=== PATIENT | female | born 1970 | race African-American/Black ===

== ENCOUNTER 2018-07-30 07:19 | Emergency (ER) | payer BC, MEDICAID ==
[~2018-07-30] VITALS: Ht 175.3 cm; Wt 96.0 kg
[~2018-07-30 07:19] MED LIST: ASPI-1265 PO; LISI-643 PO; NEBI2.5T3 PO; NOR5T PO
[2018-07-30 07:26] VITALS: BP 166/109
[2018-07-30] MEDS ORDERED: PENI500T2 PO (08:22)
== END 2018-07-30 08:32 | disposition home or self-care (01) ==
LOC: ER 07:19
DX: K04.7 Periapical abscess without sinus (principal); I10 Essential (primary) hypertension; F17.200 Nicotine dependence, unspecified, uncomplicated; Z56.0 Unemployment, unspecified; Z79.82 Long term (current) use of aspirin; Z79.899 Other long term (current) drug therapy
CPT/HCPCS: 99283

== ENCOUNTER 2025-04-28 08:29 | Inpatient (IN) | payer MEDICAID ==
[~2025-04-28] VITALS: Ht 177.8 cm; Wt 93.8 kg
[~2025-04-28 08:29] MED LIST changes: +NEBI2.5T2 PO; -NEBI2.5T3 PO
[2025-04-28 09:16] LABS: MEAN PLATELET VOLUME 7.9 FL (7.4-10.4); RED CELL DISTRIBUTION WIDTH 14.1 % (11.5-14.5)
[2025-04-28 09:34] LABS: CREATININE 0.86 MG/DL (0.40-0.90); TOTAL CARBON DIOXIDE 24.1 MMOL/L (24-32); eCRCL 80 ML/MIN; eGFR 83 ML/MIN
[2025-04-28 09:38] LABS: EOSINOPHILS % (MANUAL) 3.0 % (0-6); LYMPHOCYTES % (MANUAL) 47.0 % (21-51); MONOCYTES % (MANUAL) 8.0 % (2-12); NEUTROPHILS % (MANUAL) 42.0 % (42-75); PLATELET ESTIMATE NORMAL
--- NOTE | 2025-04-28 12:13 | ELECTROCARDIOGRAPH REPORT ---
[facility] Test Date: 2025-04-28 Test Time: 08:58:31 Pat Name: TONY SIGALA Department: EMERGENCY ROOM Room: [place] [address] Gender: F Regional Guide: SID : [id number] Requested By: CATRINA WONG Order Number: [id number] Reading MD: Dr. Hugh Newell Measurements Intervals [place] Rate: 105 P: 77 NV: 147 QRS: 73 QRSD: 92 T: 53 QT: 341 QTc: 451 Interpretive Statements Sinus tachycardia Borderline T abnormalities, anterior leads Electronically Signed On 05-02-2025 20:04:[address] Hugh Newell Please click the below link to view image of tracing.
--- NOTE | 2025-04-28 12:19 | Physician Documentation ---
History of Present Illness ~ Chief Complaint: Bloody Stools Stated Complaint: MULTIPLE MEDICAL COMPLAINTS Time Seen by MD: 11:43 Primary Medical Doctor: [facility] Mode of Arrival: POV HPI 54 yof h/o prior TUD (20pyh quite 5 years ago), anemia presenting with 1 month of weakness. Reports dizziness and weakness with standing. 1 week ago started with bright red blood in toilet bowl and abdominal cramping. No surgical history. No history of GI issues. Does report chronic loose stools. No col onoscopy or endoscopy. No NSAID or ASA use. No AC or alcohol. Medication Reconciliation Allergies: Coded Allergies: Penicillins (Verified Allergy, Unknown, 04/28/25) Scheduled Amlodipine* (Norvasc*), 5 MG PO DAILY, (Reported) Aspirin (Aspirin), 81 MG PO DAILY, (Reported) Lisinopril (Zestril), 10 MG PO DAILY, (Reported) Miscellaneous Medications Nebivolol Hcl (Bystolic), 2.5 MG PO, (Reported) Past Medical History Past Medical History: Hypertension Past Surgical History: no surgical history Alcohol Use: None Lives with: Family Lives In: Home Occupation: unemployed Review of Systems All Other Systems at this time: Reviewed and Negative Constitutional: Denies: fever Respiratory: Reports: SOB with exertion Cardiovascular: Denies: chest pain, syncope Physical Exam Vital Signs: Temperature: 96.4, Source: Temporal, Heart Rate: 112, Respiratory Rate: 16, BP: 102/75, Pulse Oximetry: 100, Weight: 93.800 Physical Exam non toxic no jvd pale conjunctiva cardiac no murmur lungs ctab abdomen mild lower quadrant ttp no guarding or rebound. neuro awake alert oriented Progress Progress Note 4pm d/w hospitalist who accepts for admission. Results/Orders Reviewed/noted all lab results: Yes (hgb 7.8 from 09.13) Results/Orders Orders - CATRINA WONG MD Ct Abdomen Pelvis (04/28/25 12:20) Page Hospitalist (04/28/25 13:48) Fill Out Med Reconciliation (04/28/25 13:48) Culture Blood (04/28/25 14:17) Completed Orders - CATRINA WONG MD Hcg, Ur Ql (04/28/25 08:37) Cbc/Diff (04/28/25 08:37) BMP (04/28/25 08:37) Lipase (04/28/25 08:37) CMP (04/28/25 08:37) Electrocardiogram (04/28/25 08:37) Man Diff (04/28/25 09:00) Type And Screen (04/28/25 12:14) Pt Inr (04/28/25 12:14) PTT (04/28/25 12:14) Ct Abdomen Pelvis (04/28/25 12:20) Iohexol 300mg/Ml 100ml Inj. (Omnipaque-3 (04/28/25 12:32) Ua W/Microscopic, Cult If Ind (04/28/25 12:32) Ceftriaxone 2gm/D5w 50ml Bag (Rocephin 2 (04/28/25 13:50) Metronidazole-Flagyl 500mg/Ns (Flagyl 50 (04/28/25 13:47) Lacticsepsis (04/28/25 14:17) Medications Received in ER Medications (Trade) Dose Ordered Sig/Tori Route PRN Reason Start Time Stop Time Status Last Admin Dose Admin Ceftriaxone Sodium/Dextrose 50 ml @ 100 mls/hr ONCE ONCE IV 04/28/25 13:50 04/28/25 14:19 DC 04/28/25 14:48 100 MLS/HR Metronidazole/ Sodium Chloride 100 ml @ 100 mls/hr ONCE STAT IV 04/28/25 13:47 04/28/25 14:46 DC 04/28/25 14:48 100 MLS/HR (Norvasc tablet) 5 mg ONCE ONCE PO 04/28/25 14:55 04/28/25 15:10 DC 04/28/25 15:30 5 MG (Zestril tablet) 10 mg ONCE ONCE PO 04/28/25 14:55 04/28/25 15:10 DC 04/28/25 15:29 10 MG Vital Signs 04/28/25 04/28/25 04/28/25 08:31 11:53 13:55 Temp 96.4 Pulse 112 80 Resp 16 16 16 B/P (MAP) 102/75 164/96 (118) Pulse Ox 100 97 O2 Flow Rate 0 Laboratory Tests Test 04/28/25 09:00 04/28/25 12:32 04/28/25 14:35 White Blood Count 2.9 L Red Blood Count 2.48 L Hemoglobin 7.8 L Hematocrit 22.7 L Mean Corpuscular Volume 91.5 Mean Corpuscular Hemoglobin 31.4 H Mean Corpuscular Hemoglobin Concent 34.4 Red Cell Distribution Width 14.1 Platelet Count 236 Mean Platelet Volume 7.9 Neutrophils (%) (Auto) 40.6 L Lymphocytes (%) (Auto) 50.2 Monocytes (%) (Auto) 6.0 Eosinophils (%) (Auto) 2.6 Basophils (%) (Auto) 0.6 Neutrophils # (Auto) 1.2 L Lymphocytes # (Auto) 1.4 Monocytes # (Auto) 0.2 Eosinophils # (Auto) 0.1 Basophils # (Auto) 0.0 CBC Comment Differential Total Cells Counted 100 Neutrophils % (Manual) 42.0 Lymphocytes % (Manual) 47.0 Monocytes % (Manual) 8.0 Eosinophils % (Manual) 3.0 Platelet Estimate Normal Red Blood Cell Morphology Normal Basophilic Stippling Prothrombin Time 9.9 INR International Normalized Ratio 1.0 Activated Partial Thromboplast Time 21 L Coagulation Comments Sodium Level 140 Potassium Level 3.5 Chloride Level 107 Carbon Dioxide Level 24.1 Anion Gap 9 Blood Urea Nitrogen 12 Creatinine 0.86 Estimated GFR/1.73 m2 83 BUN/Creatinine Ratio 14.0 Glucose Level 96 Calcium Level 8.4 L Iron Level 90 Total Iron Binding Capacity 208 L Percent Iron Saturation 43 Total Bilirubin 0.4 Aspartate Amino Transf (AST/SGOT) 12 Alanine Aminotransferase (ALT/SGPT) 24 Alkaline Phosphatase 58 Total Protein 6.5 Albumin 3.4 Globulin 3.1 Albumin/Globulin Ratio 1.1 Lipase 92 H Chemistry Comments Urine Specimen Description Cln catch midstream Urine Color Yellow Urine Clarity Clear Urine pH 6.0 Urine Specific [place] >=1.030 Urine Protein Trace Urine Glucose (UA) Negative Urine Ketones Negative Urine Occult Blood Negative Urine Nitrite Negative Urine Bilirubin Negative Urine Urobilinogen 0.2 Urine Leukocyte Esterase Negative Urine RBC 0-2 Urine WBC 0-4 Urine Squamous Epithelial Cells Few Urine Bacteria None seen Urine Mucus Few Urine Culture Indicated Not ind Volume Urine Centrifuged 10 ml Urine HCG, Qualitative Negative Urine Comment Lactic Acid Level 1.0 Microbiology Date/Time Source Procedure Growth Status 04/28/25 14:35 Blood Arm Left Blood Culture - Preliminary NEGATIVE (LESS THAN 24 HOURS) Resulted Departure Disposition: ADMITTED INPATIENT Admitted to Inpatient Unit: to hospitalist Impression: Primary Impression: Diverticulitis Additional Impression: GI bleed Qualified Codes: K92.2 - Gastrointestinal hemorrhage, unspecified Referrals: NO PRIMARY CARE PROVIDER (PCP) Signature Scribe Signature: na Attestation: CATRINA Zimmer MD Apr 28, 2025 12:19
[2025-04-28] MEDS ORDERED: iohexol 300mg/ml 100ml inj. ONE (12:32)
[2025-04-28 12:36] LABS: APTT 21 SECONDS (22-32); INR 1.0 INR
[2025-04-28 12:48] LABS: LEUKOCYTE ESTERASE ,URINE NEGATIVE (Neg); NITRITES, URINE NEGATIVE (Neg); OCCULT BLOOD,URINE NEGATIVE (Neg)
[2025-04-28 12:50] LABS: URINE HCG NEGATIVE (NEG)
[2025-04-28 12:54] LABS: MUCUS STRANDS FEW /LPF (Neg); SQUAMOUS EPITHELIAL CELL,UR FEW /LPF (FEW); UA COLLECTION TYPE CLN CATCH MIDSTREAM
--- NOTE | 2025-04-28 13:17 | RADIOLOGY REPORT ---
CT CT ABDOMEN PELVIS W/ IV CONTRAST INDICATION: abdominal pain EXAM DATE: 04/28/2025 12:37 PM COMPARISON: None RADIATION DOSE: CTDIvol: 29 mGy, DLP: 1537 mGy*cm PROCEDURE: Helical CT images were obtained of the abdomen and pelvis with IV contrast Sagittal and co tawanna reconstructions are provided. ORAL CONTRAST: None. ADDITIONAL IMAGES / REFORMATS: None All CT s cans at this medical facility are performed using dose modulation techniques as appropriate to a perf ormed exam including the following: Automated exposure control was utilized; adjustment of the MA and /or KV according to patient size; and use of iterative reconstruction technique. FINDINGS: LUNG BASE: Bibasilar ground glass opacities. LIVER: Normal. GALLBLADDER AND BILIARY TREE: No calcified gallstones. Normal caliber wall. No intra- or extrahepatic biliary ductal dilation. PANCREAS: Normal. SPLEEN: Normal. BOWEL: There is a small hiatal hernia. There is severe colonic diverticulosis with mild cecal diverti culitis. The appendix appears normal. ADRENALS: Normal. KIDNEYS AND URETER: Normal. BLADDER: Normal. REPRODUCTIVE ORGANS: Small uterine fibroids are seen. LYMPH NODES:No lymphadenopathy. PERITONEUM: No ascites or free air. No other fluid collection. VESSELS: Scattered atherosclerotic calcifications are noted. RETROPERITONEUM: Normal. ABDOMINAL WALL: Normal. BONES: Scattered osseous degenerative changes are noted. IMPRESSION: Severe colonic diverticulosis with mild cecal diverticulitis.
[2025-04-28] MEDS: CefTRIAXone 2gm/D5W 50ml BAG 50 ML IV ONE (14:48)
[2025-04-28] MEDS: metroNIDAZOLE-Flagyl 500mg/NS 100 ML IV STA (14:48)
[2025-04-28] MEDS ORDERED: magnesium sulf-water 2g/50mL 50 ML IV PRN (14:55)
[2025-04-28] MEDS ORDERED: mag hydrox/Alum hydrox/simeth 30ml oral suspension PO PRN (14:55)
[2025-04-28] MEDS ORDERED: potassium Cl 20 mEq SR tablet PO PRN (14:55)
[2025-04-28] MEDS ORDERED: magnesium sulf-water 4G/100mL 100 ML IV PRN (14:55)
[2025-04-28] MEDS ORDERED: potassium Cl 40MEQ/1/2NS 520ml 520 ML IV PRN (14:55)
[2025-04-28] MEDS ORDERED: magnesium hydroxide 30ml (MOM) UD suspension PO PRN (14:55)
--- NOTE | 2025-04-28 15:13 | HISTORY AND PHYSICAL ---
History & Physical Providers to CC ~ History of Present Illness Reason for Admit\Complaint: Acute diverticulitis\ Fatigue and dizziness History of Present Illness This is a 54-year-old female who presents to the ED with a chief complaint of left lower quadrant abdominal tenderness and pain times three days. The patient has been dizzy and fatigued for close to one month she had symptoms while she was at [facility] in her daughter thought that maybe the patient was dehydrated and needed to eat and with the eating food and hydration the patient felt better. The patient noticed three days ago that while experiencing diarrhea that she had bright red blood in her stool she has a another episode where stool was darker colored. The patient also was experiencing cramping while having a bowel movement. The patient did take ibuprofen with the abdominal cramping however rarely takes ibuprofen does not recall if she took ibuprofen with food. The patient has a history of anemia and had a workup with Hematology for which the patient informs me was inconclusive. Hemoglobin currently 7.8 which on previous lab in [address] scan was obtained that demonstrates diverticulitis. Allergies: Coded Allergies: Penicillins (Verified Allergy, Unknown, 04/28/25) Home Medications Home Medications Active Reported Aspirin 81 Mg Tab.chew 81 Mg PO DAILY Bystolic (Nebivolol Hcl) 2.5 Mg Tablet 2.5 Mg PO Zestril (Lisinopril) 10 Mg Tablet 10 Mg PO DAILY Norvasc* (Amlodipine Besylate) 5 Mg Tablet 5 Mg PO DAILY Past Medical History Past Medical History Anemia, hypertension Past Surgical History Surgical History Comment Ankle surgery, bone marrow biopsy for anemia workup Family History Family History: FH: hypertension MOTHER Past Social History Social History Comment Quit smoking cigarettes five years ago, does not drink alcohol or use illicit drugs. Full code status. ROS ROS Except for positives in the HPI the rest of the 14 point review systems is negative Exam Vitals: Vital Signs Date Time Temp Pulse Resp B/P (MAP) Pulse Ox O2 Delivery O2 Flow Rate FiO2 04/28/25 13:55 80 16 164/96 (118) 97 0 04/28/25 08:31 96.4 General: Gen. No acute distress alert and oriented 4 Lungs clear to ascultation bilaterally, no wheezes rales or rhonchi appreciated Heart normal sinus rhythm no murmurs rubs or clicks noted Abdomen soft nontender bowel sounds are normoactive Lower extremities no clubbing cyanosis, nor edema appreciated bilaterally Diagnostic Data Last Recorded Lab Results: 04/28/25 0900 04/28/25 0900 Diagnostic Data: Laboratory Tests Test 04/28/25 09:00 Prothrombin Time 9.9 SECONDS (9.0-12.0) INR International Normalized Ratio 1.0 INR Activated Partial Thromboplast Time 21 SECONDS (22-32) L Coagulation Comments Advance Care Planning Advanced Care plannin - 30 Minutes Problems: (1) Diverticulitis Additional Plan # acute diverticulitis IV Cipro IV Flagyl # hematochezia # melena # anemia Possibly related to diverticulitis Prior hematology evaluation which was inconclusive I will start the patient on Protonix 40 mg IV b.i.d. Iron studies are ordered # hypertension Continue amlodipine Continue lisinopril PRN hydralazine # DVT prophylaxis SCDs I spent a total of 17 minutes on reviewing various resuscitative measures/ ACP with the patient at the time of admission. The patient has decided on full code status Date of Service: Apr 28, 2025 Billing Provider: CAROLYN COSTELLO DO Common Visit Codes: 87569-[id number] INP/OBS CARE (HIGH) Secondary Visit Codes: [id number] CARE PLAN 30 MINUTES CAROLYN COSTELLO DO Apr 28, 2025 15:13
[2025-04-28 15:17] LABS: % IRON SATURATION 43 % (11-46)
[2025-04-28] MEDS ORDERED: hydrALAZINE 20mg/ml inj. IV PRN (15:20)
[2025-04-28 16:31] LABS: MEAN PLATELET VOLUME 8.1 FL (7.4-10.4); RED CELL DISTRIBUTION WIDTH 13.8 % (11.5-14.5)
[2025-04-28 17:00] VITALS: BP 141/81; PULSE 83; RESP 14; TEMP 98.6; O2SAT 97
[2025-04-28 18:00] VITALS: BP 141/81; PULSE 83; RESP 14; TEMP 98.6; O2SAT 97
[2025-04-28] MEDS: K and/or MAG REPLACEMENT MC SCH (19:05)
[2025-04-28 20:00] VITALS: RESP 14; O2SAT 97
[2025-04-28] MEDS: docusate sod 100mg capsule PO SCH (20:37)
[2025-04-28] MEDS: ciprofloxacin lact 400MG/200ML 200 ML IV SCH (20:42)
[2025-04-28] MEDS: ondansetron/PF 4mg/2ml inj IV PRN (20:53)
[2025-04-28 22:00] VITALS: BP 137/82; PULSE 87; RESP 20; TEMP 98.2; O2SAT 100
[2025-04-28] MEDS ORDERED: SEMA1.7P SQ (22:45)
[2025-04-29] VITALS (11 sets, daily range): BP systolic 116–132; BP diastolic 67–84; PULSE 84–110; RESP 14–18; TEMP 97.5–98.6; O2SAT 97–98
[2025-04-29] MEDS: metroNIDAZOLE-Flagyl 500mg/NS 100 ML IV SCH (00:16)
[2025-04-29 05:49] LABS: MEAN PLATELET VOLUME 8.1 FL (7.4-10.4); RED CELL DISTRIBUTION WIDTH 14.0 % (11.5-14.5)
[2025-04-29 06:24] LABS: CREATININE 0.75 MG/DL (0.40-0.90); TOTAL CARBON DIOXIDE 24.3 MMOL/L (24-32); eCRCL 92 ML/MIN; eGFR > 90 ML/MIN
[2025-04-29] MEDS: potassium Cl 20 mEq SR tablet PO PRN (08:16)
--- NOTE | 2025-04-29 19:12 | PROGRESS NOTE ---
Daily Progress Note Providers to CC ~ Antibiotic Timeout Antibiotic Ordered?: No Subjective The patient dropped her hemoglobin to 6.8 today and I discuss the risks and benefits of a transfusion with the patient and consented her for transfusion 1 unit of packed red blood cells. The patient is iron studies demonstrates an normal serum iron level and % saturation our for TIBC is depressed Objective Vital Signs Date Time Temp Pulse Resp B/P (MAP) Pulse Ox O2 Delivery O2 Flow Rate FiO2 04/29/25 16:05 98.6 84 16 132/84 04/29/25 10:00 98 Room Air 04/28/25 13:55 0 Result Diagram: 04/29/25 0516 04/29/25 0516 Gen. No acute distress alert and oriented 4 Lungs clear to ascultation bilaterally, no wheezes rales or rhonchi appreciated Heart normal sinus rhythm no murmurs rubs or clicks noted Abdomen soft nontender bowel sounds are normoactive Lower extremities no clubbing cyanosis, nor edema appreciated bilaterally Coagulation Studies Laboratory Tests Test 04/28/25 09:00 Prothrombin Time 9.9 SECONDS (9.0-12.0) INR International Normalized Ratio 1.0 INR Activated Partial Thromboplast Time 21 SECONDS (22-32) L Coagulation Comments Problem\Assessment\Plan Problems/Diagnosis: (1) Diverticulitis # acute diverticulitis IV Cipro IV Flagyl # hematochezia # melena # anemia Possibly related to diverticulitis Prior hematology evaluation which was inconclusive I will start the patient on Protonix 40 mg IV b.i.d. 04/29 Iron studies demonstrated normal serum iron level and % saturation however TIBC is depressed recommended follow up with Hematology in the outpatient setting Hemoglobin dropped to 6.8 and a unit of packed red blood cells was ordered to transfuse # hypertension Continue amlodipine Continue lisinopril PRN hydralazine # DVT prophylaxis SCDs Date of Service: Apr 29, 2025 Billing Provider: CAROLYN COSTELLO DO Common Visit Codes: [id number] INP/OBS CARE(HIGH) CAROLYN COSTELLO DO Apr 29, 2025 19:12
[2025-04-29 20:04] LABS: MEAN PLATELET VOLUME 7.9 FL (7.4-10.4); RED CELL DISTRIBUTION WIDTH 16.4 % (11.5-14.5)
[2025-04-30 05:48] LABS: MEAN PLATELET VOLUME 8.0 FL (7.4-10.4); RED CELL DISTRIBUTION WIDTH 16.8 % (11.5-14.5)
[2025-04-30 06:10] LABS: CREATININE 0.89 MG/DL (0.40-0.90); TOTAL CARBON DIOXIDE 24.2 MMOL/L (24-32); eCRCL 77 ML/MIN; eGFR 80 ML/MIN
[2025-04-30 06:30] VITALS: BP 145/94; PULSE 82; RESP 18; TEMP 98.2; O2SAT 97
[2025-04-30 09:48] LABS: C DIFF ANTIGEN NEGATIVE (NEGATIVE); C DIFF SPECIMEN=DIARRHEA? ACCEPTABLE; C DIFFICILE TOXINS A&B NEGATIVE (Neg)
[2025-04-30] MEDS ORDERED: CIPR-202 PO (10:59)
[2025-04-30] MEDS ORDERED: PANT40TA54 PO (10:59)
[2025-04-30] MEDS ORDERED: METR-159 PO (10:59)
[2025-04-30 11:00] VITALS: BP 151/94; PULSE 83; RESP 15; TEMP 97.9; O2SAT 97
[2025-04-30 18:00] VITALS: BP 146/89; PULSE 79; RESP 16; TEMP 97.9; O2SAT 99
[2025-04-30 20:00] VITALS: RESP 18
--- NOTE | 2025-04-30 20:00 | PROGRESS NOTE ---
Daily Progress Note Providers to CC ~ Antibiotic Timeout Antibiotic Ordered?: Yes Subjective The patient was concerned about going home and requested to stay an additional evening to monitor hemoglobin which has stabilized and was 7.5 today Objective Vital Signs Date Time Temp Pulse Resp B/P (MAP) Pulse Ox O2 Delivery O2 Flow Rate FiO2 04/30/25 11:00 97.9 83 15 151/94 (113) 97 Room Air 04/30/25 08:00 0.0 Result Diagram: 04/30/2543304/30/25 043 Gen. No acute distress alert and oriented 4 Lungs clear to ascultation bilaterally, no wheezes rales or rhonchi appreciated Heart normal sinus rhythm no murmurs rubs or clicks noted Abdomen soft nontender bowel sounds are normoactive Lower extremities no clubbing cyanosis, nor edema appreciated bilaterally Coagulation Studies Laboratory Tests Test 04/28/25 09:00 Prothrombin Time 9.9 SECONDS (9.0-12.0) INR International Normalized Ratio 1.0 INR Activated Partial Thromboplast Time 21 SECONDS (22-32) L Coagulation Comments Problem\Assessment\Plan Problems/Diagnosis: (1) Diverticulitis # acute diverticulitis IV Cipro IV Flagyl # hematochezia # melena # anemia Possibly related to diverticulitis Prior hematology evaluation which was inconclusive I will start the patient on Protonix 40 mg IV b.i.d. 04/29 Iron studies demonstrated normal serum iron level and % saturation however TIBC is depressed recommended follow up with Hematology in the outpatient setting Hemoglobin dropped to 6.8 and a unit of packed red blood cells was ordered to transfuse 04/30 hemoglobin has stabilized status post transfusion of 1 unit of packed red blood cells and was 7.5. Continue monitor # hypertension Continue amlodipine Continue lisinopril PRN hydralazine # DVT prophylaxis SCDs Anticipate discharge in the a.m. Date of Service: Apr 30, 2025 Billing Provider: CAROLYN COSTELLO DO Common Visit Codes: [id number] INP/OBS CARE(HIGH) CAROLYN COSTELLO DO Apr 30, 2025 20:00
[2025-04-30 22:00] VITALS: BP 134/87; PULSE 80; RESP 14; TEMP 98; O2SAT 99
[2025-05-01 04:55] LABS: MEAN PLATELET VOLUME 7.8 FL (7.4-10.4); RED CELL DISTRIBUTION WIDTH 16.5 % (11.5-14.5)
[2025-05-01 05:15] LABS: CREATININE 0.79 MG/DL (0.40-0.90); TOTAL CARBON DIOXIDE 23.9 MMOL/L (24-32); eCRCL 87 ML/MIN; eGFR > 90 ML/MIN
[2025-05-01 06:00] VITALS: BP 134/84; PULSE 85; RESP 14; TEMP 98; O2SAT 99
[2025-05-01 08:20] VITALS: RESP 16
[2025-05-01 10:00] VITALS: BP 154/89; PULSE 84; RESP 17; TEMP 97.5; O2SAT 99
--- NOTE | 2025-05-01 20:10 | DISCHARGE SUMMARY ---
Discharge Summary Providers to CC ~ Discharge Summary Admission Diagnosis: Acute diverticulitis Hospital Course DATE OF ADMISSION: 04/28/2025 DATE OF DISCHARGE: 05/01/2025 Discharge Diagnosis\Comment: GI bleed, diverticulitis, hypertension Operations\Procedures: None Consultants: None Complications: None Condition on DC: Stable New Medications: Ciprofloxacin HCl (Ciprofloxacin HCl) 500 Mg Tab 1 TAB PO BID, #10 TAB Metronidazole* (Flagyl*) 500 Mg Tablet 1 TAB PO Q8H, #15 TAB Pantoprazole Sodium (Pantoprazole Sodium) 40 Mg Tablet.dr 40 MG PO DAILY, #30 TAB.SR Continued Medications: Amlodipine* (Norvasc*) 5 Mg Tablet 5 MG PO DAILY Lisinopril (Zestril) 10 Mg Tablet 10 MG PO DAILY Semaglutide (Wegovy) 1.7 Mg/0.75 Ml Pen.injctr 0.75 SQ Q7D Discontinued Medications: Aspirin (Aspirin) 81 Mg Tab.chew 81 MG PO DAILY, TAB.CHEW Discharge Summary: I admitted the patient with the following HPI:This is a 54-year-old female who presents to the ED with a chief complaint of left lower quadrant abdominal tenderness and pain times three days. The patient has been dizzy and fatigued for close to one month she had symptoms while she was at [employer] in her daughter thought that maybe the patient was dehydrated and needed to eat and with the eating food and hydration the patient felt better. The patient noticed three days ago that while experiencing diarrhea that she had bright red blood in her stool she has a another episode where stool was darker colored. The patient also was experiencing cramping while having a bowel movement. The patient did take ibuprofen with the abdominal cramping however rarely takes ibuprofen does not recall if she took ibuprofen with food. The patient has a history of anemia and had a workup with Hematology for which the patient informs me was inconclusive. Hemoglobin currently 7.8 which on previous lab in [address] scan was obtained that demonstrates diverticulitis. The patient's hemoglobin dropped to 6.8 on the and the patient was transfused 1 unit packed red blood cells for which her hemoglobin did improve to 7.4 and was stable and on day discharge was 8.1 Iron studies were obtained which demonstrated a serum iron level of 90 TIBC of 208 and % saturation of 43 that is the patient is not have iron-deficiency but anemia of chronic disease. The patient had seen Hematology in the past and was recommended to go follow up with Hematology The CT scan on admission demonstrated severe colonic diverticulosis with mild cecal diverticulitis and the patient was treated with IV ciprofloxacin and IV metronidazole and discharged with an additional five days of both medications and recommended to take a probiotic to avoid C difficile enterocolitis. 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 Gen. No acute distress alert and oriented 4 Lungs clear to ascultation bilaterally, no wheezes rales or rhonchi appreciated Heart normal sinus rhythm no murmurs rubs or clicks noted Abdomen soft nontender bowel sounds are normoactive Lower extremities no clubbing cyanosis, nor edema appreciated bilaterally The patient felt ready to be discharged and was medically cleared to be discharged on 05/01/2025 The patient was seen and evaluated on day of discharge. Time spent on discharge 35 minutes *Problems/Diagnosis: (1) Diverticulitis Total Time Spent on D/C: > 30 Minutes Date of Service: May 01, 2025 Billing Provider: CAROLYN COSTELLO DO Common Visit Codes: 92306-GQF/OBS DISCH DAY >30min CAROLYN COSTELLO DO May 01, 2025 20:10
[2025-05-02 05:14] LABS: HBSAG SCREEN Negative (Negative); HEP B CORE AB, IGM Negative (Negative); HEP B CORE AB, TOT Negative (Negative)
== END 2025-05-01 10:55 | disposition home or self-care (01) | DRG 244 ==
LOC: ER 08:29 → ED HOLD 14:59 → SUR 3N 17:08
PROVIDERS: ADMIT Family Medicine; ATTEND Family Medicine
PROC: BW211ZZ Computerized Tomography (CT Scan) of Abdomen and Pelvis using Low Osmolar Contrast (ICD-10-PCS; 2025-04-28)
PROC: 30233N1 Transfusion of Nonautologous Red Blood Cells into Peripheral Vein, Percutaneous Approach (ICD-10-PCS; principal; 2025-04-29)
DX: K57.33 Diverticulitis of large intestine without perforation or abscess with bleeding (principal); D63.8 Anemia in other chronic diseases classified elsewhere; I10 Essential (primary) hypertension; E86.0 Dehydration; Z88.0 Allergy status to penicillin; Z79.82 Long term (current) use of aspirin; Z79.899 Other long term (current) drug therapy
CPT/HCPCS: 36415; 36430; 74177; 80053; 81001; 81025; 83540; 83550; 83605; 83690; 83735; 85007; 85025; 85027; 85610; 85730; 86704; 86705; 86885; 86900; 86901; 86920; 87040; 87081; 87324; 87340; 87449; 93005; 96374; 96375; 99285; A6258; G0378; J0696; J0744; J2405; J2470; J3490; J7040; P9016; Q9967